=== PATIENT | female | born 1960 | race Caucasian/White ===

== ENCOUNTER 2020-07-20 15:30 | Observation (INO) ==
[2020-07-20] MEDS ORDERED: ceFAZolin 2,000 MG in D5% in Water 100 ML IVPB ONE (16:11)
[2020-07-20] MEDS ORDERED: Isovue-370 500 ML BOTTLE IVP ONE (16:12)
[2020-07-20] MEDS ORDERED: ceFAZolin 2,000 MG in 0.9 % Sodium Chloride 100 ML IVPB ONE (16:29)
[2020-07-20 17:08] LABS: Hematocrit 44.2 % (35.3-44.9); Hemoglobin 14.7 g/dL (11.5-15.4); Mean Corpuscular HGB Conc 33.3 g/dL (31.6-35.5); Mean Corpuscular Hemoglobin 35.4 pg (28.0-33.3); Mean Corpuscular Volume 106.5 fL (83.0-100.0); Mean Platelet Volume 10.8 fL (9.4-12.4); Platelet Count 187 K/mcL (140-400); Red Blood Count 4.15 M/mcL (3.82-4.97); Red Cell Distribution Width 15.8 % (11.5-14.5); White Blood Count 8.4 K/mcL (4.3-11.1)
[2020-07-20 17:27] LABS: BUN/Creatinine Ratio 19 (6-26); Blood Urea Nitrogen 14 mg/dL (6-20); C-Reactive Protein 33 mg/L (Less than 10); Calcium 9.4 mg/dL (8.6-10.3); Carbon Dioxide 28 mEq/L (23-29); Chloride 103 mEq/L (98-107); Glucose 107 mg/dL (70-105); Osmolality,Calculated 289 (280-300); Potassium 3.2 mEq/L (3.5-5.1); Sodium 139 mEq/L (136-145); eGFR For African Americans > 60 (> 60); eGFR For Non-African Americans > 60 (> 60)
[2020-07-20] MEDS ORDERED: Ketorolac 15 MG/ML VIAL IVP ONE (17:50)
[2020-07-20] MEDS ORDERED: *HR* FentaNYL (PF) 100 MCG/2 ML VIAL IVP ONE (17:50)
[2020-07-20] MEDS ORDERED: Ondansetron 4 MG/2 ML VIAL IVP ONE (17:50)
[2020-07-20] MEDS ORDERED: Naloxone 0.4 MG/ML INJ IVP PRN (19:46)
[2020-07-20 20:58] LABS: Thyroid Stimulating Hormone 4.781 mcIU/mL (0.340-5.600)
[2020-07-20] MEDS ORDERED: Ipratropium/Albuterol Neb 3 ML IH PRN (21:12)
[2020-07-20] MEDS: Budesonide/Formoterol 160/4.5 1 PUFF INH IH SCH (21:43)
[2020-07-20] MEDS: *HR* Heparin 5,000 UNIT/ML VIAL SQ SCH (22:32)
[2020-07-21 00:09] LABS: Magnesium 1.7 mg/dL (1.6-2.6)
[2020-07-21] MEDS: Ketorolac 30 MG/ML VIAL IVP PRN ×2 (03:39→09:51)
[2020-07-21 05:12] LABS: Basophils % 0.4 %; Eosinophils % 0.3 %; Hematocrit 40.9 % (35.3-44.9); Immature Granulocytes % 0.1 % (0-4); Lymphocytes # 0.8 K/mcL (0.6-4.6); Lymphocytes % 10.2 %; Mean Corpuscular Hemoglobin 34.3 pg (28.0-33.3); Mean Corpuscular Volume 107.1 fL (83.0-100.0); Mean Platelet Volume 11.3 fL (9.4-12.4); Monocytes # 0.9 K/mcL (0.0-1.3); Monocytes % 12.4 %; Neutrophils # 5.8 K/mcL (1.6-8.9); Platelet Count 165 K/mcL (140-400); Red Blood Count 3.82 M/mcL (3.82-4.97); Red Cell Distribution Width 16.1 % (11.5-14.5); Segmented Neutrophils % 76.6 %; White Blood Count 7.6 K/mcL (4.3-11.1)
[2020-07-21] MEDS: *HR* Heparin 5,000 UNIT/ML VIAL SQ SCH ×3 (05:12→21:07)
[2020-07-21 05:13] LABS: Hemoglobin 13.1 g/dL (11.5-15.4)
[2020-07-21 05:18] LABS: INR 1.2; Prothrombin Time 13.3 Seconds (9.4-12.1)
[2020-07-21 05:20] LABS: Activated Partial Thrombo Time 28.8 Seconds (26.0-36.0)
[2020-07-21 05:33] LABS: Alanine Aminotransferase 3 Units/L (7-52); Albumin 3.6 g/dL (3.5-5.7); Albumin/Globulin Ratio 1.4 (1.1-2.2); Alkaline Phosphatase 76 Units/L (34-104); Aspartate Amino Transferase 9 Units/L (13-39); BUN/Creatinine Ratio 20 (6-26); Bilirubin,Total 0.8 mg/dL (0.3-1.0); Blood Urea Nitrogen 16 mg/dL (6-20); Calcium 8.9 mg/dL (8.6-10.3); Carbon Dioxide 23 mEq/L (23-29); Chloride 108 mEq/L (98-107); Globulin 2.6 g/dL (2.4-3.5); Glucose 131 mg/dL (70-105); Osmolality,Calculated 291 (280-300); Potassium 3.9 mEq/L (3.5-5.1); Sodium 139 mEq/L (136-145); Total Protein 6.2 g/dL (6.4-8.9); eGFR For African Americans > 60 (> 60); eGFR For Non-African Americans > 60 (> 60)
[2020-07-21 05:55] LABS: Folate 3.5 ng/mL (3.0-16.0)
[2020-07-21] MEDS: Budesonide/Formoterol 160/4.5 1 PUFF INH IH SCH ×2 (07:48→20:49)
[2020-07-21] MEDS: amLODIPine 5 MG TABLET PO SCH (09:47)
[2020-07-21] MEDS: Topiramate 25 MG TABLET PO SCH ×2 (09:47→21:07)
[2020-07-21] MEDS: predniSONE 20 MG TABLET PO SCH (13:28)
[2020-07-22] MEDS: *HR* Heparin 5,000 UNIT/ML VIAL SQ SCH (06:10)
[2020-07-22] MEDS: Topiramate 25 MG TABLET PO SCH (07:34)
[2020-07-22] MEDS: amLODIPine 5 MG TABLET PO SCH (07:34)
[2020-07-22] MEDS: predniSONE 20 MG TABLET PO SCH (07:34)
[2020-07-22] MEDS: Budesonide/Formoterol 160/4.5 1 PUFF INH IH SCH (07:51)
[2020-07-22] MEDS ORDERED: FLU Vac QV 20-21 (6Month+)/PF 0.5 ML SYRINGE IM ONE (09:13)
[2020-07-22 10:30] VITALS: BP 100/56
== END 2020-07-22 11:55 | disposition home or self-care (01) ==
LOC: EMEROOARM 15:30 → 3ANU 15:30 → SUATTDRO 19:25 → 3ANU 20:10
PROVIDERS: ADMIT Internal Medicine; ATTEND Internal Medicine

== ENCOUNTER 2022-06-03 18:38 | Observation (INO) ==
[2022-06-03] MEDS ORDERED: Albuterol 2.5 MG/3 ML NEBULIZER IH ONE (21:07)
[2022-06-03] MEDS ORDERED: Ipratropium/Albuterol Neb 3 ML IH ONE (21:07)
[2022-06-03] MEDS ORDERED: methylPREDNISolone 125 MG/2 ML VIAL IVP ONE (21:07)
[2022-06-03] MEDS ORDERED: Iopamidol - 370 500 ML MLS IVP ONE (21:07)
[2022-06-03 21:29] LABS: Basophils % 0.2 %; Hematocrit 46.9 % (35.3-44.9); Hemoglobin 14.1 g/dL (11.5-15.4); Immature Granulocytes % 0.6 % (0-4); Lymphocytes # 1.1 K/mcL (0.6-4.6); Lymphocytes % 6.8 %; Mean Corpuscular HGB Conc 30.1 g/dL (31.6-35.5); Mean Corpuscular Hemoglobin 29.7 pg (28.0-33.3); Mean Corpuscular Volume 98.7 fL (83.0-100.0); Mean Platelet Volume 11.4 fL (9.4-12.4); Monocytes # 1.4 K/mcL (0.0-1.3); Monocytes % 8.7 %; Neutrophils # 13.7 K/mcL (1.6-8.9); Platelet Count 226 K/mcL (140-400); Red Blood Count 4.75 M/mcL (3.82-4.97); Red Cell Distribution Width 18.7 % (11.5-14.5); Segmented Neutrophils % 83.7 %; White Blood Count 16.3 K/mcL (4.3-11.1)
[2022-06-03 22:07] LABS: Alanine Aminotransferase 11 Units/L (7-52); Albumin 3.2 g/dL (3.5-5.7); Alkaline Phosphatase 116 Units/L (34-104); Aspartate Amino Transferase 37 Units/L (13-39); BUN/Creatinine Ratio 18 (6-26); Bilirubin,Total 0.7 mg/dL (0.3-1.0); Blood Urea Nitrogen 14 mg/dL (6-20); Calcium 9.3 mg/dL (8.6-10.3); Carbon Dioxide 31 mEq/L (23-29); Chloride 101 mEq/L (98-107); Creatine Kinase 228 Units/L (30-223); Ethanol < 10 mg/dL (Less than 10); Globulin 3.1 g/dL (2.4-3.5); Glucose 112 mg/dL (70-105); Magnesium 1.6 mg/dL (1.6-2.6); Osmolality,Calculated 285 (280-300); Potassium 4.2 mEq/L (3.5-5.1); Sodium 137 mEq/L (136-145); Total Protein 6.3 g/dL (6.4-8.9)
[2022-06-03 22:15] LABS: Bilirubin,Urine Negative (Negative); Blood,Urine Negative (Negative); Clarity,Urine Turbid (Clear); Color,Urine Yellow (Yellow); Glucose,Urine (UA) Normal (Normal); Ketones,Urine Negative (Negative); Leukocyte Esterase,Urine Trace (Negative); Nitrite,Urine Negative (Negative); Protein,Urine 50 mg/dL (Neg-Trace); Specific Gravity,Urine 1.024 (1.010-1.025)
[2022-06-03 22:16] LABS: WBC,Urine 0-3 per hpf (0-3)
[2022-06-03 22:17] LABS: Amorphous Sediment,Urine Many per hpf (None-Few); Bacteria,Urine None Seen per hpf (None-Few); Hyaline Casts,Urine None Seen per lpf (None Seen); Squamous Epithelial Cell,Urine None Seen per hpf (None-Few)
[2022-06-03 22:25] LABS: Amphetamine Screen,Urine Negative ng/mL (Cutoff=1000); Barbiturate Screen,Urine Negative ng/mL (Cutoff=200); Benzodiazepines Screen,Urine Negative ng/mL (Cutoff=200); Cannabinoid Screen,Urine Negative ng/mL (Cutoff = 50); Cocaine Screen,Urine Negative ng/mL (Cutoff= 300); Opiate Screen,Urine Negative ng/mL (Cutoff=300); Phencyclidine Screen,Urine Negative ng/mL (Cutoff=25)
[2022-06-04 00:11] LABS: VBG HCO3 30 mEq/L (21-27); VBG PCO2 61 mmHg (41-51); VBG PH 7.31 pH Units (7.32-7.42); VBG PO2 109 mmHg (25-50)
[2022-06-04] MEDS ORDERED: Acetaminophen 325 MG TABLET PO PRN (00:35)
[2022-06-04] MEDS ORDERED: Ondansetron 4 MG/2 ML VIAL IVP PRN (00:35)
[2022-06-04] MEDS ORDERED: Naloxone 0.4 MG/ML INJ IVP PRN (00:35)
[2022-06-04 00:38] LABS: Adenovirus Not Detected (Not Detect); Bordetella Pertussis Not Detected (Not Detect); Chlamydophila pneumoniae Not Detected (Not Detect); Coronavirus 229E Not Detected (Not Detect); Coronavirus HKU1 Not Detected (Not Detect); Coronavirus NL63 Not Detected (Not Detect); Coronavirus OC43 Not Detected (Not Detect); Human Metapneumovirus Not Detected (Not Detect); Human Rhinovirus/Enterovirus Not Detected (Not Detect); Influenza A Subtype 2009 H1 Not Detected (Not Detect); Influenza B Not Detected (Not Detect); Mycoplasma pneumoniae Not Detected (Not Detect); Parainfluenza Virus 1 Not Detected (Not Detect); Parainfluenza Virus 2 Not Detected (Not Detect); Parainfluenza Virus 3 Not Detected (Not Detect); Parainfluenza Virus 4 Not Detected (Not Detect); Respiratory Syncytial Virus Not Detected (Not Detect); SARS-CoV-2 Not Detected (Not Detect)
[2022-06-04] MEDS: D5% in 0.9% NACL 1,000 ML IVC SCH ×3 (01:03→18:25)
[2022-06-04] MEDS ORDERED: Iopamidol - 370 500 ML MLS IVP ONE (01:55)
[2022-06-04 03:34] LABS: Thyroid Stimulating Hormone 2.948 mcIU/mL (0.340-5.600)
[2022-06-04 11:02] LABS: Hematocrit 46.6 % (35.3-44.9); Hemoglobin 14.3 g/dL (11.5-15.4); Mean Corpuscular HGB Conc 30.7 g/dL (31.6-35.5); Mean Corpuscular Hemoglobin 29.9 pg (28.0-33.3); Mean Corpuscular Volume 97.5 fL (83.0-100.0); Mean Platelet Volume 11.1 fL (9.4-12.4); Platelet Count 190 K/mcL (140-400); Red Blood Count 4.78 M/mcL (3.82-4.97); Red Cell Distribution Width 18.2 % (11.5-14.5)
[2022-06-04 11:06] LABS: White Blood Count 6.1 K/mcL (4.3-11.1)
[2022-06-04 11:21] LABS: Magnesium 1.6 mg/dL (1.6-2.6); Potassium 3.1 mEq/L (3.5-5.1)
[2022-06-04] MEDS: cefTRIAXone 1,000 MG in 0.9 % Sodium Chloride 10 ML IVP SCH (11:57)
[2022-06-04] MEDS ORDERED: *HR* Labetalol 20 MG/4 ML SYRINGE IVP PRN (17:03)
[2022-06-04] MEDS: *HR* Heparin 5,000 UNIT/ML VIAL SQ SCH (17:18)
[2022-06-04] MEDS: MethylPREDNISolone 40 MG/ML VIAL IVP SCH (17:19)
[2022-06-04 18:16] LABS: ABG Base Excess 3 mEq/L (-2 to 3); ABG HCO3 31 mEq/L (21-27); ABG Oxygen Saturation 98 % (95-98); ABG PCO2 59 mmHg (35-45); ABG PH 7.33 pH Units (7.32-7.45); ABG PO2 115 mmHg (85-104); ABG TCO2 33 mEq/L (20-26)
[2022-06-04] MEDS: Ipratropium/Albuterol Neb 3 ML IH SCH ×2 (18:23→22:55)
[2022-06-04] MEDS: Topiramate 100 MG TABLET PO SCH (22:32)
[2022-06-04] MEDS: rOPINIRole 1 MG TABLET PO SCH (22:33)
[2022-06-04] MEDS: Budesonide/Formoterol 160/4.5 1 PUFF INH IH SCH (22:55)
[2022-06-05 03:14] LABS: Hematocrit 46.3 % (35.3-44.9); Hemoglobin 14.3 g/dL (11.5-15.4); Immature Granulocytes % 0.7 % (0-4); Lymphocytes # 0.5 K/mcL (0.6-4.6); Lymphocytes % 4.9 %; Mean Corpuscular HGB Conc 30.9 g/dL (31.6-35.5); Mean Corpuscular Volume 97.1 fL (83.0-100.0); Mean Platelet Volume 11.3 fL (9.4-12.4); Monocytes # 0.3 K/mcL (0.0-1.3); Monocytes % 2.6 %; Neutrophils # 9.1 K/mcL (1.6-8.9); Platelet Count 198 K/mcL (140-400); Red Blood Count 4.77 M/mcL (3.82-4.97); Red Cell Distribution Width 18.5 % (11.5-14.5); Segmented Neutrophils % 91.8 %
[2022-06-05 03:16] LABS: White Blood Count 9.9 K/mcL (4.3-11.1)
[2022-06-05 03:37] LABS: BUN/Creatinine Ratio 17 (6-26); Blood Urea Nitrogen 12 mg/dL (6-20); Calcium 9.3 mg/dL (8.6-10.3); Carbon Dioxide 32 mEq/L (23-29); Chloride 105 mEq/L (98-107); Glucose 125 mg/dL (70-105); Magnesium 2.1 mg/dL (1.6-2.6); Osmolality,Calculated 293 (280-300); Phosphorous 2.8 mg/dL (2.7-4.5); Potassium 4.4 mEq/L (3.5-5.1); Sodium 141 mEq/L (136-145)
[2022-06-05] MEDS: Ipratropium/Albuterol Neb 3 ML IH SCH ×4 (03:52→22:48)
[2022-06-05] MEDS: MethylPREDNISolone 40 MG/ML VIAL IVP SCH ×2 (06:01→17:15)
[2022-06-05] MEDS: *HR* Heparin 5,000 UNIT/ML VIAL SQ SCH ×2 (06:02→17:14)
[2022-06-05] MEDS: cefTRIAXone 1,000 MG in 0.9 % Sodium Chloride 10 ML IVP SCH (08:47)
[2022-06-05] MEDS: Topiramate 100 MG TABLET PO SCH ×2 (08:47→20:06)
[2022-06-05] MEDS: Budesonide/Formoterol 160/4.5 1 PUFF INH IH SCH ×2 (10:09→22:48)
[2022-06-05] MEDS: rOPINIRole 1 MG TABLET PO SCH (20:06)
[2022-06-06] MEDS: Ipratropium/Albuterol Neb 3 ML IH SCH ×2 (03:59→10:51)
[2022-06-06] MEDS: MethylPREDNISolone 40 MG/ML VIAL IVP SCH (06:09)
[2022-06-06] MEDS: *HR* Heparin 5,000 UNIT/ML VIAL SQ SCH (06:09)
[2022-06-06] MEDS: Topiramate 100 MG TABLET PO SCH (09:15)
[2022-06-06] MEDS: Budesonide/Formoterol 160/4.5 1 PUFF INH IH SCH (10:51)
[2022-06-06 11:00] VITALS: BP 163/80; PULSE 84; TEMP 97.1; O2SAT 100
== END 2022-06-06 13:00 | disposition home health service (06) ==
LOC: 2NENU 18:38 → EMEROOARM 18:38 → SUATTDRO 06-04 15:39 → 2NENU 06-04 16:37
PROVIDERS: ADMIT Internal Medicine; ATTEND Family Medicine